=== PATIENT | male | born 1995 | race Caucasian/White ===

== ENCOUNTER 2020-10-30 15:48 | Outpatient (CLI) | payer BC, SELFPAY ==
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
[2020-10-30] MEDS: iohexol 300 mg/mL 100 mL Btl IV (16:20)
== END 2020-10-30 15:49 | disposition home or self-care (01) ==
PROVIDERS: Visit Provider Family Medicine
DX: K76.89 Other specified diseases of liver (principal)
CPT/HCPCS: 74160; Q9967

== ENCOUNTER 2022-08-24 22:02 | Emergency (ER) | payer OTHER, BC, SELFPAY ==
--- NOTE | 2022-08-24 22:04 | XRR_ITS ---
PROCEDURE INFORMATION: Exam: XR Right Ankle Exam date and time: 08/24/2022 11:02 PM Age: 26 years old Clinical indication: Injury or trauma; Fall; Sprain or strain; Ankle; Right; Additional info: Right ankle injury TECHNIQUE: Imaging protocol: Radiologic exam of the right ankle. Views: 3 or more views. COMPARISON: No relevant prior studies available. FINDINGS: Bones/joints: No acute fracture or malalignment. Soft tissues: Unremarkable. XR/XR ankle RT min 3V* [id number] IMPRESSION: No acute findings.
[2022-08-24 22:19] VITALS: BP 162/92; PULSE 100; RESP 16; TEMP 37.3; O2SAT 98; BMI 27.8
[2022-08-24 22:50] VITALS: BP 146/95; PULSE 102; RESP 18; O2SAT 97
--- NOTE | 2022-08-24 22:51 | XRR_ITS ---
PROCEDURE INFORMATION: Exam: XR Right Tibia and Fibula Exam date and time: 08/24/2022 11:03 PM Age: 26 years old Clinical indication: Injury or trauma; Fall; Sprain or strain; Lower leg; Right TECHNIQUE: Imaging protocol: Radiologic exam of the right tibia and fibula. Views: 2 views. COMPARISON: CR (LOW EXM, ) 08/24/2022 11:02 PM FINDINGS: Bones/joints: No acute fracture or malalignment. Soft tissues: Unremarkable. XR/XR tibia fibula RT 2V [id number] IMPRESSION: No acute findings.
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
[2022-08-24] MEDS: naproxen 500 mg Tablet PO (23:05)
[2022-08-24 23:14] VITALS: BP 137/93; PULSE 93; RESP 18; O2SAT 98
== END 2022-08-24 23:14 | disposition home or self-care (01) ==
PROVIDERS: Emergency Provider Emergency Medicine; PCP Family Medicine
DX: S93.401A Sprain of unspecified ligament of right ankle, initial encounter (principal); V00.141A Fall from scooter (nonmotorized), initial encounter
CPT/HCPCS: 73590; 73610; 99283